=== PATIENT | female | born 2000 | race Hispanic/Latino ===

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

== ENCOUNTER 2022-07-31 16:54 | Emergency (ER) | payer SELFPAY ==
[2022-07-31 17:31] LABS: #Eosinphils 0.1 thou/uL (0.0-0.7); #Lymphocytes 1.7 thou/uL (1.20-3.40); #Monocytes 0.7 thou/uL (0.11-0.59); #Neutrophils 10.7 thou/uL (1.40-6.50); %Basophils 0.1 % (0.0-1.0); %Eosinophils 0.7 % (0.0-10.0); %Neutrophils 81.3 % (31.0-61.0); Hemoglobin 13.1 g/dL (12.0-16.0); Mean Corpuscular HGB CONC 33.9 g/dL (32.0-36.0); Mean Corpuscular Volume 91.3 fl (78.0-98.0); Mean Platelet Volume 8.8 fL (7.4-10.4); Platelet Count 184 10x3/uL (130-400); RBC Distribution Width 11.1 % (11.5-14.5); Red Blood Cell (RBC) Count 4.21 mill/uL (4.00-5.20); White Blood Cell (WBC) Count 13.2 10x3/uL (4.8-10.8)
[2022-07-31 17:53] LABS: ALT (SGPT) 10 U/L (8-55); AST (SGOT) 12 U/L (5-34); Albumin 3.9 g/dL (3.5-5.0); Alkaline Phosphatase 47 U/L (40-100); Anion Gap 11 mmol/L (10-20); BUN (Urea Nitrogen) 10 mg/dL (7.0-18.7); Bilirubin, Total 0.3 mg/dL (0.2-1.2); Calc. Creatinine Clearance 0 mL/min (70-130); Calcium 8.9 mg/dL (7.8-10.44); Carbon Dioxide 20 mmol/L (22-29); Chloride 109 mmol/L (98-107); Estimated GFR 121; Globulin 2.6 g/dL (2.4-3.5); Glucose 152 mg/dL (70-105); Lipase 44 U/L (8-78); Potassium 3.3 mmol/L (3.5-5.1); Protein, Total 6.5 g/dL (6.0-8.3); Sodium 137 mmol/L (136-145)
[2022-07-31 20:21] LABS: Bacteria/HPF 1+ HPF (None Seen); Bilirubin Negative (Negative); Blood, Urine Negative (Negative); Clarity Clear (Clear); Glucose, Urine (Dipstick) Normal (Negative); Ketone, Urine Negative (Negative); Leukocyte 250 Leu/uL (Negative); Nitrite Negative (Negative); Protein, Urine (Dipstick) Negative (Neg-Trace); RBC/HPF 0-3 HPF (0-3); Specific Gravity, Urine 1.026 (1.002-1.036); Squamous Epithelial 0-3 HPF (0-3); Urobilinogen Normal mg/dL (Less than 2)
[2022-07-31] MEDS ORDERED: Ondansetron ODT 4 MG TAB ONE (20:34)
== END 2022-07-31 22:24 | disposition home or self-care (01) ==
LOC: ERS 16:54
DX: O20.0 Threatened abortion (principal); N39.0 Urinary tract infection, site not specified; D72.829 Elevated white blood cell count, unspecified; Z3A.01 Less than 8 weeks gestation of pregnancy
CPT/HCPCS: 36415; 76856; 80053; 81003; 81015; 83690; 84702; 85025; 86900; 86901; Q0162

== ENCOUNTER 2023-04-13 01:52 | Emergency (ER) | payer OTHER | END 2023-04-13 02:56 | disposition left against medical advice (07) | LOC: ERS 01:52 | DX: Z53.21 Procedure and treatment not carried out due to patient leaving prior to being seen by health care provider (principal) ==

== ENCOUNTER 2024-04-22 22:10 | Emergency (ER) | payer OTHER, SELFPAY ==
[2024-04-23] MEDS ORDERED: Ketorolac Tromethamine 30 MG (1 mL) VIAL ONE (00:49)
== END 2024-04-23 01:45 | disposition home or self-care (01) ==
LOC: ERS 22:10
DX: M54.6 Pain in thoracic spine (principal); W01.198A Fall on same level from slipping, tripping and stumbling with subsequent striking against other object, initial encounter; Y93.89 Activity, other specified; Y92.69 Other specified industrial and construction area as the place of occurrence of the external cause
CPT/HCPCS: 71046; 72072; 96372; J1885